=== PATIENT | female | born 1985 | race Caucasian/White ===

== ENCOUNTER 2018-12-28 12:26 | Emergency (ER) | payer MEDICAID | END 2018-12-28 16:10 | disposition home or self-care (01) | LOC: E/R 12:26 | DX: Z43.6 Encounter for attention to other artificial openings of urinary tract (principal); J45.909 Unspecified asthma, uncomplicated | CPT/HCPCS: 99282 ==

== ENCOUNTER → 2019-01-12 | Outpatient (CLI) | payer MEDICAID | END | disposition home or self-care (01) | LOC: RAD 12:54 | DX: N20.0 Calculus of kidney (principal); N39.0 Urinary tract infection, site not specified | CPT/HCPCS: 36589 ==